=== PATIENT | female | born 1950 | race Caucasian/White ===

== ENCOUNTER 2017-03-02 20:42 | Emergency (ER) | payer MEDICARE ==
[~2017-03-02] VITALS: Ht 157.5 cm; Wt 85.9 kg
[~2017-03-02 20:42] MED LIST: NOMED
[2017-03-02 20:54] VITALS: BP 157/94; PULSE 57; RESP 18; O2SAT 96
--- NOTE | 2017-03-02 21:53 | ED.REPORT ---
HPI-Eye Problem Date of Service Mar 02, 2017 ED Provider: Jean-Pierre Rocha MD Patient is a 66 year old female who presents to the ED complaining of a popped vessel in her R eye at 2000 this evening. She was standing up, talking to her grandson and rubbed her eye when the incident occurred. She denies any pain. Associated symptoms include mild headache. She denies cough, blurry vision, or any other symptoms. She was recently taken off blood thinner for her hip surgery and she is concerned about blood clots. Nursing Notes Stated Complaint: BLOOD VESSEL POPPED IN RIGHT EYE,7 WEEKS POST SURG Chief Complaint: Eye Nursing Notes Reviewed: Yes Allergies: Uncoded Allergies: BEE STINGS (Allergy, Unknown, UNKNOWN, 11/16/11) DOGS (Allergy, Unknown, UNKNOWN (CERTAIN TYPES ONLY), 11/16/11) TREES (Allergy, Unknown, UNKNOWN, 11/16/11) No Active Prescriptions or Reported Meds General Time Seen by MD: 21:40 Chief Complaint Right eye affected Hx Obtained From: Patient Arrived By: Walk-in Sudden in Onset?: Yes Onset Occurred: 1 - 4 hours ago Immunizations: Unknown Recent Healthcare: Previous surgery Similar Sx Previous: No Past Medical History Past Medical History Denies Past Surgical History R hip L thumb Smoking History Current Every Day Smoker Social History Other Social History: Good social support Ambulatory Status Independent Review of Systems Review of Systems Note: +popped blood vessel in R eye Eyes: Denies: Blurred bilateral Neurologic: Reports: Headache Complete sys rev & neg: except as marked. Respiratory: Denies: Non-productive cough Physical Exam Initial Vital Signs Vital Signs (First) Date Time Temp Pulse Resp B/P Pulse Ox O2 Delivery O2 Flow Rate FiO2 03/02/17 20:54 36.8 57 18 157/94 96 Room Air Initial VS: Reviewed Neck: Full range of motion Respiratory: No respiratory distress Abdomen / GI: Soft, Non-tender Skin: Warm, Dry Neurologic: Alert, Oriented, Nonfocal Psychiatric: Mood/affect normal, Behavior normal, Normal thought content Head / Eyes: Atraumatic, Normocephalic subconjunctival hemorrhage of R eye Fluorescein negative General/Constitutional: Awake, Alert, No acute distress ENT: Pharynx NL Re-Eval/Medical Decision Med Decision/Clinical Course 66-year-old female with spontaneous right subconjunctival hemorrhage. Atraumatic. Denies pain. Denies trauma and no evidence of trauma on exam. Her blood pressure is stable. I did perform a fluorescein exam which showed no corneal abrasion. She is advised to follow up with primary doctor. She was given the number for ophthalmology should she develop any blurry vision, signs/symptoms infection. Re-Evaluation/Progress : Time of Eval: 22:49 Re-Evaluation/Progress Note: Discussed plan for discharge. Patient understands and agrees with plan. All questions addressed at this time. Counseled Regarding: Diagnosis, Need for follow-up, When/why to return to ED Discharge & Departure Primary Impression: Subconjunctival hemorrhage Laterality: right Qualified Code: H11.31 - Conjunctival hemorrhage, right eye Disposition: Home Discharge Condition All VS Reviewed: Yes Condition: Stable Patient Instructions: Subconjunctival Hemorrhage (ED) Additional Instructions: Thank you for entrusting us with your care. You do not appear to have any traumatic injury to your eye. Follow up with an eye doctor via the number provided if you develop redness around your eye, blurry vision, or discharge. Referrals: Iggy Lugo MD (PCP) Kevin Acevedo MD Scribe Attestation Portions of this note were transcribed by Isaiah Melissa. I, Dr. Rocha personally performed the history, physical exam and medical decision-making; I reviewed and confirmed the accuracy of the information in the transcribed note. Signed by: Isaiah Melissa 03/02/17, 2411 copies to: Iggy Lugo MD, Ben M MD Mar 02, 2017 21:53 ISAIAH MELISSA Mar 02, 2017 22:04
[2017-03-02] MEDS ORDERED: Fluorescein 0.6 mg Ophthalmic Strip LEFT_EYE ONE (22:05)
[2017-03-02] MEDS ORDERED: Tetracaine 0.5% 4 mL Ophthalmic Solution RIGHT_EYE ONE (22:05)
== END 2017-03-02 23:09 | disposition home or self-care (01) ==
LOC: SED 20:42
DX: H11.31 Conjunctival hemorrhage, right eye (principal); R51 Headache; F17.200 Nicotine dependence, unspecified, uncomplicated; Z91.030 Bee allergy status; Z91.048 Other nonmedicinal substance allergy status